=== PATIENT | female | born 1995 | race Caucasian/White ===

== ENCOUNTER 2017-04-30 02:07 | Emergency (ER) | payer BC ==
[~2017-04-30] VITALS: Ht 172.7 cm; Wt 72.0 kg
[2017-04-30 02:25] VITALS: BP 128/91; PULSE 115; RESP 16; TEMP 97.3; O2SAT 98
[2017-04-30] MEDS ORDERED: SODIUM CHLOR 0.9% 1000 ML INJ 1,000 ML IV ONE ×2 (02:51)
[2017-04-30] MEDS ORDERED: SODIUM CHLORIDE 0.9% FLUSH 10 ML FLUSH IVF PRN (03:00)
[2017-04-30] MEDS ORDERED: ONDANSETRON HCL 4 MG/2 ML VIAL IV PUSH ONE (03:00)
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
== END 2017-04-30 05:33 | disposition home or self-care (01) ==
LOC: NEPC 02:07
DX: R11.2 Nausea with vomiting, unspecified (principal); F10.929 Alcohol use, unspecified with intoxication, unspecified; Y90.8 Blood alcohol level of 240 mg/100 ml or more
CPT/HCPCS: 80307; 84703; 96361; 96374; 99284; J2405; J7030